=== PATIENT | female | born 1960 | race Caucasian/White ===

== ENCOUNTER 2016-10-19 09:13 | Inpatient (IN) | payer MEDICARE, MEDICAID ==
[~2016-10-19] VITALS: Ht 167.6 cm; Wt 94.8 kg
[~2016-10-19 09:13] MED LIST: DOCU-150 PO; FURO40TA5 PO; LORA1TAB PO; LORA2VIA33 IM; OXCA300T31 PO; TEMA30CA5 PO; TRAZ300T2 PO
[2016-10-19 10:44] LABS: BASOPHILS % 0.7 % (0.0-2.0); EOSINOPHILS % 1.7 % (0.0-5.0); HEMATOCRIT. 26.6 % (36.0-48.0); HEMOGLOBIN. 9.3 g/dL (12.0-16.0); LYMPHOCYTES % 17.2 % (20.0-50.0); MEAN CORPUSCULAR HEMOGLOBIN 30.9 pg (28.0-32.0); MEAN CORPUSCULAR VOLUME 87.9 fL (81.0-99.0); MEAN PLATELET VOLUME 6.8 fl (7.4-10.4); MONOCYTES % 6.2 % (2.0-8.0); NEUTROPHILS % 74.2 % (40.0-76.0); PLATELET 137 x1000/uL (130-400); RED BLOOD CELL COUNT 3.02 mill/uL (4.2-5.4); RED CELL DISTRIBUTION WIDTH 14.3 % (11.6-14.6)
[2016-10-19 10:54] LABS: AMMONIA 16 uMol/L (<32)
[2016-10-19 11:01] LABS: CARBON DIOXIDE 29 mEq/L (21-32); CHLORIDE 109 mEq/L (98-107); ETHANOL BLOOD < 10 mg/dL; TROPONIN I < 0.02 ng/mL (0.00-0.04)
[2016-10-19 13:05] LABS: CLARITY URINE CLEAR (CLEAR); COLOR URINE DARK YELLOW (YELLOW); GLUCOSE URINE NEGATIVE (NEGATIVE); KETONES URINE NEGATIVE (NEGATIVE); LEUKOCYTE ESTERASE URINE TRACE (NEGATIVE); NITRITE URINE NEGATIVE (NEGATIVE); OCCULT BLOOD URINE NEGATIVE (NEGATIVE); PROTEIN URINE NEGATIVE (NEGATIVE); SPECIFIC GRAVITY URINE 1.018 (1.005-1.030); UROBILINOGEN URINE 0.2 E.U./dL (0.2-1.0)
[2016-10-19 13:15] LABS: *AMPHETAMINES SCREEN URINE NEGATIVE (NEGATIVE); *BARBITURATES SCREEN URINE NEGATIVE (NEGATIVE); *BENZODIAZEPINES SCREEN URINE PRESUMTIVE POSITIVE (NEGATIVE); *COCAINE SCREEN URINE NEGATIVE (NEGATIVE); CANNABINOID URINE SCREEN NEGATIVE (NEGATIVE); METHADONE URINE SCREEN NEGATIVE (NEGATIVE); OPIATES URINE SCREEN PRESUMTIVE POSITIVE (NEGATIVE); PHENCYCLIDINE URINE SCREEN NEGATIVE (NEGATIVE)
[2016-10-19] MEDS ORDERED: FLUMAZENIL 0.1 MG/ML 5ML VIAL IV ONE (14:30)
[2016-10-19] MEDS ORDERED: NALOXONE HCL 1 MG/ML 2ML VIAL IV ONE (14:30)
[2016-10-19 17:00] VITALS: BP 85/40
[2016-10-19 17:29] VITALS: BP 85/40
[2016-10-19] MEDS ORDERED: OXCA300T31 PO (17:35)
[2016-10-19] MEDS ORDERED: TEMAZEPAM 15MG CAPSULE PO PRN (18:00)
[2016-10-19] MEDS ORDERED: ACETAMINOPHEN 325MG TABLET PO PRN (18:00)
[2016-10-19] MEDS ORDERED: ONDANSETRON HCL 4MG/2ML VIAL IV PRN (18:00)
[2016-10-19] MEDS ORDERED: CLONIDINE 0.2MG TABLET PO PRN (18:00)
[2016-10-19] MEDS ORDERED: IBUPROFEN 600MG TABLET PO PRN (18:00)
[2016-10-19] MEDS ORDERED: POTASSIUM CHLORIDE 20MEQ TABLET SR PO NR (18:15)
[2016-10-19] MEDS: SODIUM CHLORIDE 0.45% 1,000 ML IV SCH (18:42)
[2016-10-19 20:00] VITALS: BP 102/60
[2016-10-19] MEDS: TRAZODONE HCL 100MG TABLET PO SCH (21:00)
[2016-10-19] MEDS: OXCARBAZEPINE 150MG TABLET PO SCH (21:00)
[2016-10-19] MEDS: ENOXAPARIN 30MG/0.3ML SYR SUBCUT SCH (22:38)
[2016-10-20] VITALS: BP 108/64
[2016-10-20 04:00] VITALS: BP 99/59
[2016-10-20 05:49] LABS: BASOPHILS % 1.2 % (0.0-2.0); EOSINOPHILS % 0.9 % (0.0-5.0); HEMATOCRIT. 27.5 % (36.0-48.0); HEMOGLOBIN. 9.4 g/dL (12.0-16.0); LYMPHOCYTES % 25.8 % (20.0-50.0); MEAN CORPUSCULAR HEMOGLOBIN 30.4 pg (28.0-32.0); MEAN CORPUSCULAR VOLUME 88.9 fL (81.0-99.0); MEAN PLATELET VOLUME 6.9 fl (7.4-10.4); NEUTROPHILS % 65.1 % (40.0-76.0); PLATELET 193 x1000/uL (130-400); RED BLOOD CELL COUNT 3.09 mill/uL (4.2-5.4); RED CELL DISTRIBUTION WIDTH 14.6 % (11.6-14.6)
[2016-10-20 06:33] LABS: CARBON DIOXIDE 27 mEq/L (21-32); CHLORIDE 108 mEq/L (98-107)
[2016-10-20] MEDS ORDERED: OMEPRAZOLE 20MG CAPSULE EXTENDED RELEASE PO SCH (06:45)
[2016-10-20 08:00] VITALS: BP 95/46
[2016-10-20] MEDS ORDERED: ENOXAPARIN 40MG/0.4ML SYR SUBCUT SCH (09:00)
[2016-10-20] MEDS: SODIUM CHLORIDE 0.45% 1,000 ML IV SCH (09:44)
[2016-10-20] MEDS: LORAZEPAM 1MG TABLET PO SCH ×2 (09:46→17:48)
[2016-10-20] MEDS: FUROSEMIDE 40MG TABLET PO SCH (09:46)
[2016-10-20] MEDS: DOCUSATE SODIUM 100MG CAPSULE PO SCH (09:46)
[2016-10-20] MEDS: OXCARBAZEPINE 150MG TABLET PO SCH ×2 (09:46→21:27)
[2016-10-20] MEDS: ENOXAPARIN 30MG/0.3ML SYR SUBCUT SCH ×2 (09:47→21:27)
[2016-10-20 12:00] VITALS: BP 95/43
[2016-10-20 16:00] VITALS: BP 84/47
[2016-10-20 20:00] VITALS: BP_SYST 114; BP_SYST 93; BP_DIAS 52; BP_DIAS 67
[2016-10-20] MEDS: TRAZODONE HCL 100MG TABLET PO SCH (21:27)
[2016-10-21] VITALS: BP 102/58
[2016-10-21] MEDS: SODIUM CHLORIDE 0.45% 1,000 ML IV SCH ×2 (00:06→14:06)
[2016-10-21 04:00] VITALS: BP 99/59
[2016-10-21 08:00] VITALS: BP 95/56
[2016-10-21] MEDS: ENOXAPARIN 30MG/0.3ML SYR SUBCUT SCH ×2 (08:42→21:23)
[2016-10-21] MEDS: OXCARBAZEPINE 150MG TABLET PO SCH ×2 (08:42→21:22)
[2016-10-21] MEDS: LANSOPRAZOLE 15MG DR CAPSULE GT SCH (08:42)
[2016-10-21] MEDS: LORAZEPAM 1MG TABLET PO SCH ×2 (08:42→16:50)
[2016-10-21] MEDS: DOCUSATE SODIUM 100MG CAPSULE PO SCH (08:43)
[2016-10-21 12:00] VITALS: BP 97/59
[2016-10-21] MEDS: FUROSEMIDE 40MG TABLET PO SCH (12:13)
[2016-10-21 16:00] VITALS: BP 95/50
[2016-10-21 20:00] VITALS: BP 90/50
[2016-10-21] MEDS: TRAZODONE HCL 100MG TABLET PO SCH (21:22)
[2016-10-21] MEDS: MICONAZOLE NITRATE 2% OINT 71GM TOP SCH (21:23)
[2016-10-22] VITALS: BP 107/55
[2016-10-22] MEDS: LANSOPRAZOLE 15MG DR CAPSULE GT SCH (06:28)
[2016-10-22 08:00] VITALS: BP 107/58
[2016-10-22] MEDS: FUROSEMIDE 40MG TABLET PO SCH (10:00)
[2016-10-22] MEDS: ENOXAPARIN 30MG/0.3ML SYR SUBCUT SCH ×2 (10:00→21:40)
[2016-10-22] MEDS: LORAZEPAM 1MG TABLET PO SCH ×2 (10:00→17:52)
[2016-10-22] MEDS: OXCARBAZEPINE 150MG TABLET PO SCH ×2 (10:01→21:39)
[2016-10-22] MEDS: DOCUSATE SODIUM 100MG CAPSULE PO SCH (10:01)
[2016-10-22] MEDS: MICONAZOLE NITRATE 2% OINT 71GM TOP SCH ×2 (10:02→21:39)
[2016-10-22] MEDS: SODIUM CHLORIDE 0.45% 1,000 ML IV SCH ×2 (11:09→17:53)
[2016-10-22 12:00] VITALS: BP 110/73
[2016-10-22 16:00] VITALS: BP 103/75
[2016-10-22 20:00] VITALS: BP 129/60
[2016-10-22] MEDS: FAMOTIDINE 20MG TABLET GT SCH (21:39)
[2016-10-22] MEDS: TRAZODONE HCL 100MG TABLET PO SCH (21:39)
[2016-10-23] VITALS: BP 135/63
[2016-10-23 04:00] VITALS: BP 131/83
[2016-10-23 06:05] LABS: BASOPHILS % 0.6 % (0.0-2.0); EOSINOPHILS % 3.1 % (0.0-5.0); HEMATOCRIT. 25.4 % (36.0-48.0); HEMOGLOBIN. 8.8 g/dL (12.0-16.0); LYMPHOCYTES % 29.2 % (20.0-50.0); MEAN CORPUSCULAR HEMOGLOBIN 30.7 pg (28.0-32.0); MEAN CORPUSCULAR VOLUME 88.9 fL (81.0-99.0); MEAN PLATELET VOLUME 6.8 fl (7.4-10.4); MONOCYTES % 7.4 % (2.0-8.0); NEUTROPHILS % 59.7 % (40.0-76.0); PLATELET 171 x1000/uL (130-400); RED BLOOD CELL COUNT 2.86 mill/uL (4.2-5.4); RED CELL DISTRIBUTION WIDTH 14.4 % (11.6-14.6)
[2016-10-23 06:34] LABS: CARBON DIOXIDE 26 mEq/L (21-32); CHLORIDE 108 mEq/L (98-107)
[2016-10-23 08:30] VITALS: BP 93/50
[2016-10-23] MEDS: FAMOTIDINE 20MG TABLET GT SCH ×2 (09:14→21:30)
[2016-10-23] MEDS: LORAZEPAM 1MG TABLET PO SCH ×2 (09:14→16:28)
[2016-10-23] MEDS: FUROSEMIDE 40MG TABLET PO SCH (09:14)
[2016-10-23] MEDS: OXCARBAZEPINE 150MG TABLET PO SCH ×2 (09:14→21:30)
[2016-10-23] MEDS: ENOXAPARIN 30MG/0.3ML SYR SUBCUT SCH ×2 (09:14→21:31)
[2016-10-23] MEDS: DOCUSATE SODIUM 100MG CAPSULE PO SCH (09:14)
[2016-10-23] MEDS: MICONAZOLE NITRATE 2% OINT 71GM TOP SCH ×2 (09:14→21:31)
[2016-10-23] MEDS: LORAZEPAM 2MG/ML CPJ IM PRN (12:56)
[2016-10-23 16:00] VITALS: BP 110/70
[2016-10-23 20:00] VITALS: BP 116/74
[2016-10-23] MEDS ORDERED: POTASSIUM CHLORIDE 20MEQ TABLET SR PO NR (20:00)
[2016-10-23] MEDS: TRAZODONE HCL 100MG TABLET PO SCH (21:30)
[2016-10-24] VITALS (7 sets, daily range): BP systolic 87–166; BP diastolic 51–96
[2016-10-24] MEDS: OXCARBAZEPINE 150MG TABLET PO SCH ×2 (08:50→21:09)
[2016-10-24] MEDS: ENOXAPARIN 30MG/0.3ML SYR SUBCUT SCH ×2 (08:50→21:09)
[2016-10-24] MEDS: FUROSEMIDE 40MG TABLET PO SCH (08:50)
[2016-10-24] MEDS: MICONAZOLE NITRATE 2% OINT 71GM TOP SCH (08:50)
[2016-10-24] MEDS: LORAZEPAM 1MG TABLET PO SCH ×2 (08:50→16:48)
[2016-10-24] MEDS: DOCUSATE SODIUM 100MG CAPSULE PO SCH (08:50)
[2016-10-24] MEDS: FAMOTIDINE 20MG TABLET GT SCH ×2 (08:50→21:09)
[2016-10-24] MEDS: LORAZEPAM 2MG/ML CPJ IM PRN (20:32)
[2016-10-24] MEDS: TRAZODONE HCL 100MG TABLET PO SCH (21:09)
[2016-10-24] MEDS ORDERED: LORAZEPAM 2MG/ML CPJ IM PRN (23:00)
[2016-10-25] VITALS: BP 92/49
[2016-10-25] MEDS: MICONAZOLE NITRATE 2% OINT 71GM TOP SCH ×2 (02:31→08:58)
[2016-10-25 04:00] VITALS: BP 99/66
[2016-10-25 05:54] VITALS: BP 103/70
[2016-10-25 08:00] VITALS: BP 103/70
[2016-10-25] MEDS ORDERED: POTASSIUM CHLORIDE 20MEQ TABLET SR PO NR (08:45)
[2016-10-25] MEDS: DOCUSATE SODIUM 100MG CAPSULE PO SCH (08:57)
[2016-10-25] MEDS: FAMOTIDINE 20MG TABLET GT SCH (08:57)
[2016-10-25] MEDS: LORAZEPAM 1MG TABLET PO SCH (08:57)
[2016-10-25] MEDS: OXCARBAZEPINE 150MG TABLET PO SCH (08:57)
[2016-10-25] MEDS: FUROSEMIDE 40MG TABLET PO SCH (08:57)
[2016-10-25] MEDS: ENOXAPARIN 30MG/0.3ML SYR SUBCUT SCH (08:58)
[2016-10-25 12:00] VITALS: BP 104/58
[2016-10-25 16:00] VITALS: BP 103/74
== END 2016-10-25 16:55 | DRG 91 ==
LOC: ER 09:32 → OBSVTOIN 15:03 → INTOOBSV 15:03 → 5WST 15:03 → EDBEDREQ 15:04 → ENRESERV 15:27 → CANBEDREQ 16:23
PROVIDERS: ADMIT Internal Medicine; ATTEND Internal Medicine
DX: G92 Toxic encephalopathy (principal); E43 Unspecified severe protein-calorie malnutrition; I11.9 Hypertensive heart disease without heart failure; E87.6 Hypokalemia; E86.0 Dehydration; E66.9 Obesity, unspecified; E78.5 Hyperlipidemia, unspecified; F79 Unspecified intellectual disabilities; J44.9 Chronic obstructive pulmonary disease, unspecified; F19.10 Other psychoactive substance abuse, uncomplicated; F03.90 Unspecified dementia, unspecified severity, without behavioral disturbance, psychotic disturbance, mood disturbance, and anxiety; T42.4X5A Adverse effect of benzodiazepines, initial encounter; Z79.899 Other long term (current) drug therapy; Z68.33 Body mass index [BMI] 33.0-33.9, adult; Y92.89 Other specified places as the place of occurrence of the external cause; Z87.01 Personal history of pneumonia (recurrent); Z87.440 Personal history of urinary (tract) infections
CPT/HCPCS: 36415; 51702; 70450; 71010; 80048; 80053; 80305; 81001; 82140; 82962; 83605; 84484; 85025; 93005; 96374; 96375; 97163; 97530; 99285; A6261; C1893; G0482; J1650; J2060; J2310; J3490; J7060; A4315

== ENCOUNTER 2018-05-21 16:31 | Inpatient (IN) | payer MEDICARE, MEDICAID ==
[~2018-05-21] VITALS: Ht 162.6 cm; Wt 80.3 kg
[~2018-05-21 16:31] MED LIST changes: -LORA2VIA33 IM
[2018-05-21] MEDS ORDERED: ACETAMINOPHEN 650MG SUPP PR STA (16:59)
[2018-05-21] MEDS ORDERED: SODIUM CHLORIDE 0.9% 1000ML BAG (SEPSIS BOLUS) IV ONE (17:00)
[2018-05-21 17:55] LABS: CHLORIDE 99 mEq/L (98-107)
[2018-05-21 17:56] LABS: HEMATOCRIT. 44.6 % (36.0-48.0); HEMOGLOBIN. 14.4 g/dL (12.0-16.0); MEAN CORPUSCULAR VOLUME 93.1 fL (81.0-99.0); PLATELET 311 x1000/uL (130-400); RED BLOOD CELL COUNT 4.79 mill/uL (4.2-5.4); RED CELL DISTRIBUTION WIDTH 18.9 % (11.6-14.6)
[2018-05-21 17:57] LABS: INR 1.2; PROTHROMBIN TIME 12.1 sec (9.1-11.1)
[2018-05-21 18:18] LABS: CLARITY URINE CLOUDY (CLEAR); COLOR URINE DARK YELLOW (YELLOW); KETONES URINE TRACE (NEGATIVE); LEUKOCYTE ESTERASE URINE 2+ (NEGATIVE); NITRITE URINE NEGATIVE (NEGATIVE); OCCULT BLOOD URINE 1+ (NEGATIVE); PROTEIN URINE 1+ (NEGATIVE); SPECIFIC GRAVITY URINE 1.024 (1.005-1.030); UROBILINOGEN URINE 0.2 E.U./dL (0.2-1.0)
[2018-05-21 18:20] LABS: BG BASE EXCESS -6.5 mmol/L (-2.0-2.0); BG CARBOXYHEMOGLOBIN 1.1 % (0.5-1.5); BG DEOXYHEMOGLOBIN 10.4 % (0.0-5.0); BG FRACTION INSPIRED OXYGEN 100; BG HCO3 ACT 20.1 mmol/L (22.0-26.0); BG METHEMOGLOBIN 0.3 % (0.0-1.5); BG OXYGEN SATURATION 89.5 % (92.0-98.5); BG OXYHEMOGLOBIN 88.2 % (94.0-97.0); BG PCO2 43.9 mmHg (35.0-45.0); BG PH 7.278 (7.350-7.450); BG PO2 66.8 mmHg (75.0-100.0); BG SAMPLE SITE RIGHT RADIAL; BG VENT MODE MASK - NRB
[2018-05-21 18:26] LABS: PLATELET ESTIMATE NORMAL
[2018-05-21] MEDS ORDERED: VANCOMYCIN 1 G PREMIX 200 ML IV ONE (19:00)
[2018-05-21] MEDS ORDERED: PIPERACILLIN/TAZ 3.375G PREMIX 50 ML IV ONE (19:00)
[2018-05-21] MEDS ORDERED: PIPERACILLIN/TAZ 3.375G PREMIX 50 ML IV SCH (19:15)
[2018-05-21] MEDS ORDERED: IPRATROPIUM/ALBUTEROL 0.5-3(2.5)MG/3ML NEB INH PRN (19:15)
[2018-05-21] MEDS ORDERED: CLONIDINE 0.1MG TABLET PO PRN (19:15)
[2018-05-21] MEDS ORDERED: LORAZEPAM 2MG/ML CPJ IV ONE (21:15)
[2018-05-21 22:00] VITALS: BP 158/118
[2018-05-21 22:05] VITALS: BP 158/118
[2018-05-21] MEDS: DEXT 5%/0.45% NACL 1000ML 1,000 ML IV SCH (23:22)
[2018-05-22] VITALS (12 sets, daily range): BP systolic 91–114; BP diastolic 51–83
[2018-05-22] MEDS ORDERED: VANCOMYCIN 1 G PREMIX 200 ML IV SCH (04:00)
[2018-05-22] MEDS ORDERED: PIPERACILLIN/TAZ 3.375G PREMIX 50 ML IV SCH (05:00)
[2018-05-22 06:31] LABS: BASOPHILS % 0.3 % (0.0-2.0); EOSINOPHILS % 0.2 % (0.0-5.0); HEMATOCRIT. 31.1 % (36.0-48.0); HEMOGLOBIN. 10.7 g/dL (12.0-16.0); LYMPHOCYTES % 23.1 % (20.0-50.0); MEAN CORPUSCULAR HEMOGLOBIN 31.1 pg (28.0-32.0); MEAN CORPUSCULAR VOLUME 90.4 fL (81.0-99.0); MEAN PLATELET VOLUME 7.3 fl (7.4-10.4); MONOCYTES % 5.9 % (2.0-8.0); NEUTROPHILS % 70.5 % (40.0-76.0); PLATELET 151 x1000/uL (130-400); RED BLOOD CELL COUNT 3.44 mill/uL (4.2-5.4); RED CELL DISTRIBUTION WIDTH 18.4 % (11.6-14.6)
[2018-05-22 06:38] LABS: CHLORIDE 108 mEq/L (98-107)
[2018-05-22 06:48] LABS: LDL CHOLESTEROL 36 mg/dL (5-100)
[2018-05-22 06:49] LABS: HDL CHOLESTEROL 43 mg/dL (40-59)
[2018-05-22] MEDS ORDERED: NA PHOS,M-B/NA PHOS,DI-BA ENEMA 118ML PR ONE (07:45)
[2018-05-22] MEDS ORDERED: DEXTROSE 50% WATER 50ML SYRINGE IV PRN (08:00)
[2018-05-22] MEDS ORDERED: INSULIN LISPRO 100 UNITS/ML SUBCUT SCH (08:00)
[2018-05-22] MEDS: ENOXAPARIN 40MG/0.4ML SYR SUBCUT SCH (08:38)
[2018-05-22 09:50] LABS: VITAMIN B12 SERUM 871 pg/mL (211-911)
[2018-05-22 10:10] LABS: ETHANOL BLOOD < 10 mg/dL
[2018-05-22 10:14] LABS: T4 FREE 1.05 ng/dL (0.76-1.46)
[2018-05-22 10:18] LABS: TOTAL IRON BINDING CAPACITY 316 ug/dL (250-450)
[2018-05-22 10:27] LABS: FOLIC ACID (FOLATE) SERUM > 20.00 ng/mL (>5.38)
[2018-05-22] MEDS ORDERED: SORBITOL 70% SOLN 30ML PO NR (10:45)
[2018-05-22] MEDS ORDERED: BISACODYL 10MG SUPP PR PRN (10:45)
[2018-05-22 10:49] LABS: BG BASE EXCESS 4.7 mmol/L (-2.0-2.0); BG CARBOXYHEMOGLOBIN 0.3 % (0.5-1.5); BG DEOXYHEMOGLOBIN 3.9 % (0.0-5.0); BG FRACTION INSPIRED OXYGEN 32; BG HCO3 ACT 29.1 mmol/L (22.0-26.0); BG METHEMOGLOBIN 0.2 % (0.0-1.5); BG OXYGEN SATURATION 96.1 % (92.0-98.5); BG OXYHEMOGLOBIN 95.6 % (94.0-97.0); BG PCO2 42.9 mmHg (35.0-45.0); BG PO2 88.1 mmHg (75.0-100.0); BG SAMPLE SITE RIGHT RADIAL; BG TOTAL HEMOGLOBIN 10.1 g/dL (12.0-18.0); BG VENT MODE NASAL CANNULA
[2018-05-22] MEDS: MIDODRINE HCL 5MG TABLET PO SCH ×3 (11:08→17:30)
[2018-05-22] MEDS: DEXT 5%/0.45% NACL 1000ML 1,000 ML IV SCH ×2 (11:42→22:26)
[2018-05-22] MEDS: BLOOD SUGAR DIAGNOSTIC STRIP TEST SCH ×3 (11:56→23:50)
[2018-05-22] MEDS: INSULIN LISPRO 100 UNITS/ML SUBCUT SCH ×2 (11:56→18:00)
[2018-05-22] MEDS: PIPERACILLIN/TAZ 3.375G PREMIX 50 ML IV SCH ×3 (12:13→22:34)
[2018-05-22] MEDS ORDERED: BLOOD SUGAR DIAGNOSTIC STRIP TEST SCH (12:30)
[2018-05-22 13:56] LABS: *AMPHETAMINES SCREEN URINE NEGATIVE (NEGATIVE); *BARBITURATES SCREEN URINE NEGATIVE (NEGATIVE); *BENZODIAZEPINES SCREEN URINE NEGATIVE (NEGATIVE); *COCAINE SCREEN URINE NEGATIVE (NEGATIVE)
[2018-05-22 13:57] LABS: CANNABINOID URINE SCREEN NEGATIVE (NEGATIVE); METHADONE URINE SCREEN NEGATIVE (NEGATIVE); OPIATES URINE SCREEN NEGATIVE (NEGATIVE); PHENCYCLIDINE URINE SCREEN NEGATIVE (NEGATIVE)
[2018-05-22] MEDS: IPRATROPIUM/ALBUTEROL 0.5-3(2.5)MG/3ML NEB HHN SCH ×2 (16:16→20:32)
[2018-05-22] MEDS: VANCOMYCIN 1 G PREMIX 200 ML IV SCH (18:17)
[2018-05-22] MEDS: ONDANSETRON HCL 4MG/2ML INJ IV PRN (22:30)
[2018-05-22] MEDS: HYDROMORPHONE HCL/PF 2MG/ML CPJ IV PRN (22:54)
[2018-05-23] VITALS (12 sets, daily range): BP systolic 84–131; BP diastolic 46–94
[2018-05-23] MEDS: IPRATROPIUM/ALBUTEROL 0.5-3(2.5)MG/3ML NEB HHN SCH ×6 (00:34→21:46)
[2018-05-23] MEDS: PIPERACILLIN/TAZ 3.375G PREMIX 50 ML IV SCH ×2 (04:47→12:05)
[2018-05-23] MEDS: VANCOMYCIN 1 G PREMIX 200 ML IV SCH (05:48)
[2018-05-23] MEDS: BLOOD SUGAR DIAGNOSTIC STRIP TEST SCH ×3 (05:49→17:31)
[2018-05-23] MEDS: INSULIN LISPRO 100 UNITS/ML SUBCUT SCH ×4 (06:00→17:31)
[2018-05-23 06:15] LABS: BASOPHILS % 0.4 % (0.0-2.0); EOSINOPHILS % 0.9 % (0.0-5.0); HEMATOCRIT. 30.1 % (36.0-48.0); HEMOGLOBIN. 10.3 g/dL (12.0-16.0); LYMPHOCYTES % 18.7 % (20.0-50.0); MEAN PLATELET VOLUME 7.4 fl (7.4-10.4); MONOCYTES % 7.2 % (2.0-8.0); NEUTROPHILS % 72.8 % (40.0-76.0); PLATELET 137 x1000/uL (130-400); RED BLOOD CELL COUNT 3.31 mill/uL (4.2-5.4); RED CELL DISTRIBUTION WIDTH 18.3 % (11.6-14.6)
[2018-05-23 06:23] LABS: CHLORIDE 107 mEq/L (98-107)
[2018-05-23 06:39] LABS: VANCOMYCIN TROUGH 7.5 ug/mL (5.0-10.0)
[2018-05-23] MEDS: MIDODRINE HCL 5MG TABLET PO SCH ×3 (08:16→16:34)
[2018-05-23] MEDS: PANTOPRAZOLE SODIUM 40 MG/VIAL IV SCH (08:17)
[2018-05-23] MEDS: ENOXAPARIN 40MG/0.4ML SYR SUBCUT SCH (08:17)
[2018-05-23 08:45] LABS: BG BASE EXCESS 3.4 mmol/L (-2.0-2.0); BG CARBOXYHEMOGLOBIN 0.3 % (0.5-1.5); BG DEOXYHEMOGLOBIN 5.8 % (0.0-5.0); BG FRACTION INSPIRED OXYGEN 21; BG HCO3 ACT 27.8 mmol/L (22.0-26.0); BG METHEMOGLOBIN 0.3 % (0.0-1.5); BG OXYGEN SATURATION 94.2 % (92.0-98.5); BG OXYHEMOGLOBIN 93.6 % (94.0-97.0); BG PCO2 41.8 mmHg (35.0-45.0); BG PH 7.441 (7.350-7.450); BG PO2 71.6 mmHg (75.0-100.0); BG SAMPLE SITE RIGHT BRACHIAL; BG TOTAL HEMOGLOBIN 9.4 g/dL (12.0-18.0); BG VENT MODE ROOM AIR
[2018-05-23] MEDS ORDERED: POTASSIUM CHLORIDE INJ 60 MEQ in DEXT 5% WATER 500 ML IV NR (09:00)
[2018-05-23] MEDS ORDERED: VANCOMYCIN 1250MG in DEXTROSE 5% WATER 250ML IV SCH (14:00)
[2018-05-23] MEDS: LACTULOSE 20G/30ML UDC PO SCH ×2 (14:09→21:19)
[2018-05-23] MEDS: ACETAMINOPHEN 325MG TABLET PO PRN (16:34)
[2018-05-23] MEDS: DEXT 5%/0.45% NACL 1000ML 1,000 ML IV SCH (18:30)
[2018-05-23] MEDS: MEROPENEM 1,000 MG in SODIUM CHLORIDE 0.9% 100 ML IV SCH (21:20)
[2018-05-23] MEDS: ONDANSETRON HCL 4MG/2ML INJ IV PRN (21:20)
[2018-05-24] VITALS (11 sets, daily range): BP systolic 112–157; BP diastolic 62–91
[2018-05-24] MEDS: ACETAMINOPHEN 325MG TABLET PO PRN (01:20)
[2018-05-24] MEDS: ONDANSETRON HCL 4MG/2ML INJ IV PRN (03:44)
[2018-05-24] MEDS: DEXT 5%/0.45% NACL 1000ML 1,000 ML IV SCH (03:48)
[2018-05-24] MEDS: IPRATROPIUM/ALBUTEROL 0.5-3(2.5)MG/3ML NEB HHN SCH ×4 (04:15→20:31)
[2018-05-24] MEDS: INSULIN LISPRO 100 UNITS/ML SUBCUT SCH ×4 (06:00→17:48)
[2018-05-24] MEDS: BLOOD SUGAR DIAGNOSTIC STRIP TEST SCH ×4 (06:43→17:48)
[2018-05-24] MEDS: LACTULOSE 20G/30ML UDC PO SCH ×3 (06:43→22:29)
[2018-05-24] MEDS: MEROPENEM 1,000 MG in SODIUM CHLORIDE 0.9% 100 ML IV SCH ×3 (06:43→22:30)
[2018-05-24 07:09] LABS: CHLORIDE 106 mEq/L (98-107)
[2018-05-24 07:10] LABS: BASOPHILS % 0.6 % (0.0-2.0); EOSINOPHILS % 1.1 % (0.0-5.0); HEMATOCRIT. 29.9 % (36.0-48.0); HEMOGLOBIN. 10.4 g/dL (12.0-16.0); LYMPHOCYTES % 16.5 % (20.0-50.0); MEAN CORPUSCULAR HEMOGLOBIN 31.2 pg (28.0-32.0); MEAN CORPUSCULAR VOLUME 89.3 fL (81.0-99.0); MEAN PLATELET VOLUME 7.3 fl (7.4-10.4); MONOCYTES % 5.8 % (2.0-8.0); PLATELET 169 x1000/uL (130-400); RED BLOOD CELL COUNT 3.35 mill/uL (4.2-5.4); RED CELL DISTRIBUTION WIDTH 17.9 % (11.6-14.6)
[2018-05-24 07:18] LABS: PHOSPHORUS 2.7 mg/dL (2.5-4.9)
[2018-05-24] MEDS ORDERED: LIDOCAINE HCL 1% 20ML VIAL (Pyxis) INJ ONE (08:12)
[2018-05-24] MEDS: ENOXAPARIN 40MG/0.4ML SYR SUBCUT SCH (09:52)
[2018-05-24] MEDS: MIDODRINE HCL 5MG TABLET PO SCH ×3 (09:52→16:56)
[2018-05-24] MEDS: PANTOPRAZOLE SODIUM 40 MG/VIAL IV SCH (09:52)
[2018-05-24] MEDS ORDERED: POTASSIUM CHLORIDE 20MEQ/PACKET NG NR (10:30)
[2018-05-24] MEDS: LORAZEPAM 2MG/ML CPJ IV PRN (22:29)
[2018-05-25] VITALS (12 sets, daily range): BP systolic 103–150; BP diastolic 64–96
[2018-05-25] MEDS: IPRATROPIUM/ALBUTEROL 0.5-3(2.5)MG/3ML NEB HHN SCH ×5 (00:23→20:26)
[2018-05-25] MEDS: DEXT 5%/0.45% NACL 1000ML 1,000 ML IV SCH (04:19)
[2018-05-25] MEDS: MEROPENEM 1,000 MG in SODIUM CHLORIDE 0.9% 100 ML IV SCH ×3 (05:46→14:49)
[2018-05-25] MEDS: LACTULOSE 20G/30ML UDC PO SCH ×2 (05:47→17:28)
[2018-05-25] MEDS: BLOOD SUGAR DIAGNOSTIC STRIP TEST SCH ×4 (05:58→17:34)
[2018-05-25] MEDS: INSULIN LISPRO 100 UNITS/ML SUBCUT SCH ×4 (05:58→17:34)
[2018-05-25] MEDS: PANTOPRAZOLE SODIUM 40 MG/VIAL IV SCH (10:09)
[2018-05-25] MEDS: LORAZEPAM 2MG/ML CPJ IV PRN (10:10)
[2018-05-25] MEDS: MIDODRINE HCL 5MG TABLET PO SCH ×3 (10:10→17:27)
[2018-05-25] MEDS: ENOXAPARIN 40MG/0.4ML SYR SUBCUT SCH (10:11)
[2018-05-25 11:25] LABS: BASOPHILS % 0.5 % (0.0-2.0); EOSINOPHILS % 1.3 % (0.0-5.0); HEMATOCRIT. 29.8 % (36.0-48.0); HEMOGLOBIN. 9.9 g/dL (12.0-16.0); LYMPHOCYTES % 28.9 % (20.0-50.0); MEAN CORPUSCULAR HEMOGLOBIN 29.9 pg (28.0-32.0); MEAN CORPUSCULAR VOLUME 89.9 fL (81.0-99.0); MONOCYTES % 9.7 % (2.0-8.0); NEUTROPHILS % 59.6 % (40.0-76.0); PLATELET 159 x1000/uL (130-400); RED BLOOD CELL COUNT 3.31 mill/uL (4.2-5.4); RED CELL DISTRIBUTION WIDTH 17.8 % (11.6-14.6)
[2018-05-25 11:37] LABS: CHLORIDE 108 mEq/L (98-107)
[2018-05-25] MEDS: LEVETIRACETAM 500 MG in SODIUM CHLORIDE 0.9% 100 ML IV SCH ×2 (12:58→21:39)
[2018-05-25] MEDS ORDERED: POTASSIUM CHLORIDE 20MEQ/PACKET PO NR (13:00)
[2018-05-25 13:28] LABS: BG BASE EXCESS 2.8 mmol/L (-2.0-2.0); BG CARBOXYHEMOGLOBIN 0.5 % (0.5-1.5); BG DEOXYHEMOGLOBIN 7.5 % (0.0-5.0); BG FRACTION INSPIRED OXYGEN 21; BG HCO3 ACT 26.5 mmol/L (22.0-26.0); BG METHEMOGLOBIN 0.1 % (0.0-1.5); BG OXYGEN SATURATION 92.5 % (92.0-98.5); BG OXYHEMOGLOBIN 91.9 % (94.0-97.0); BG PCO2 37.3 mmHg (35.0-45.0); BG PO2 66.6 mmHg (75.0-100.0); BG SAMPLE SITE RIGHT RADIAL; BG TOTAL HEMOGLOBIN 10.8 g/dL (12.0-18.0); BG VENT MODE ROOM AIR
[2018-05-25] MEDS: MORPHINE SULFATE 4 MG/ML CPJ (NOT FOR IM USE) IV PRN (21:39)
[2018-05-26] VITALS (12 sets, daily range): BP systolic 108–146; BP diastolic 59–113
[2018-05-26] MEDS: IPRATROPIUM/ALBUTEROL 0.5-3(2.5)MG/3ML NEB HHN SCH ×6 (00:05→20:36)
[2018-05-26] MEDS: DEXT 5%/0.45% NACL 1000ML 1,000 ML IV SCH ×2 (01:19→19:30)
[2018-05-26] MEDS: INSULIN LISPRO 100 UNITS/ML SUBCUT SCH ×4 (06:00→18:00)
[2018-05-26] MEDS: BLOOD SUGAR DIAGNOSTIC STRIP TEST SCH ×4 (06:00→18:00)
[2018-05-26 06:12] LABS: BASOPHILS % 0.8 % (0.0-2.0); EOSINOPHILS % 5.1 % (0.0-5.0); HEMATOCRIT. 29.5 % (36.0-48.0); HEMOGLOBIN. 10.2 g/dL (12.0-16.0); LYMPHOCYTES % 35.6 % (20.0-50.0); MEAN CORPUSCULAR HEMOGLOBIN 30.8 pg (28.0-32.0); MEAN CORPUSCULAR VOLUME 89.3 fL (81.0-99.0); MONOCYTES % 5.7 % (2.0-8.0); NEUTROPHILS % 52.8 % (40.0-76.0); RED BLOOD CELL COUNT 3.31 mill/uL (4.2-5.4); RED CELL DISTRIBUTION WIDTH 17.7 % (11.6-14.6)
[2018-05-26] MEDS: MEROPENEM 1,000 MG in SODIUM CHLORIDE 0.9% 100 ML IV SCH ×3 (06:14→21:49)
[2018-05-26 07:32] LABS: CHLORIDE 106 mEq/L (98-107)
[2018-05-26] MEDS: LEVETIRACETAM 500 MG in SODIUM CHLORIDE 0.9% 100 ML IV SCH ×2 (09:36→20:58)
[2018-05-26] MEDS: ENOXAPARIN 40MG/0.4ML SYR SUBCUT SCH (09:37)
[2018-05-26] MEDS: LACTULOSE 20G/30ML UDC PO SCH ×2 (09:38→16:44)
[2018-05-26] MEDS: PANTOPRAZOLE SODIUM 40 MG/VIAL IV SCH (09:38)
[2018-05-26] MEDS: ACETAMINOPHEN 325MG TABLET PO PRN ×2 (09:39→16:46)
[2018-05-26] MEDS: MIDODRINE HCL 5MG TABLET PO SCH ×3 (09:40→16:45)
[2018-05-26 09:54] LABS: MEAN PLATELET VOLUME 7.7 fl (7.4-10.4); PLATELET 177 x1000/uL (130-400)
[2018-05-26] MEDS ORDERED: SORBITOL 70% SOLN 30ML PO NR (10:00)
[2018-05-26] MEDS: BISACODYL 10MG SUPP PR SCH ×2 (12:49→16:45)
[2018-05-26] MEDS: ONDANSETRON HCL 4MG/2ML INJ IV PRN (12:49)
[2018-05-26] MEDS: HYDROMORPHONE HCL/PF 2MG/ML CPJ IV PRN (13:28)
[2018-05-26] MEDS: MORPHINE SULFATE 4 MG/ML CPJ (NOT FOR IM USE) IV PRN (20:11)
[2018-05-27] VITALS (10 sets, daily range): BP systolic 110–143; BP diastolic 63–118
[2018-05-27] MEDS: IPRATROPIUM/ALBUTEROL 0.5-3(2.5)MG/3ML NEB HHN SCH ×7 (00:19→23:50)
[2018-05-27] MEDS: MEROPENEM 1,000 MG in SODIUM CHLORIDE 0.9% 100 ML IV SCH ×3 (05:17→22:48)
[2018-05-27 05:33] LABS: CHLORIDE 106 mEq/L (98-107)
[2018-05-27] MEDS: INSULIN LISPRO 100 UNITS/ML SUBCUT SCH ×4 (06:00→18:00)
[2018-05-27] MEDS: BLOOD SUGAR DIAGNOSTIC STRIP TEST SCH ×4 (06:00→18:00)
[2018-05-27] MEDS: MIDODRINE HCL 5MG TABLET PO SCH ×3 (09:00→18:46)
[2018-05-27] MEDS: DOCUSATE SODIUM 100MG CAPSULE PO PRN (10:44)
[2018-05-27] MEDS: ACETAMINOPHEN 325MG TABLET PO PRN (10:44)
[2018-05-27] MEDS: LEVETIRACETAM 500 MG in SODIUM CHLORIDE 0.9% 100 ML IV SCH ×2 (10:44→21:12)
[2018-05-27] MEDS: PANTOPRAZOLE SODIUM 40 MG/VIAL IV SCH (10:44)
[2018-05-27] MEDS: LACTULOSE 20G/30ML UDC PO SCH ×2 (10:45→18:46)
[2018-05-27] MEDS: ENOXAPARIN 40MG/0.4ML SYR SUBCUT SCH (10:46)
[2018-05-27 13:10] LABS: BASOPHILS % 0.5 % (0.0-2.0); EOSINOPHILS % 3.7 % (0.0-5.0); HEMATOCRIT. 28.6 % (36.0-48.0); HEMOGLOBIN. 9.7 g/dL (12.0-16.0); LYMPHOCYTES % 28.7 % (20.0-50.0); MEAN CORPUSCULAR HEMOGLOBIN 30.5 pg (28.0-32.0); MEAN CORPUSCULAR VOLUME 90.2 fL (81.0-99.0); MEAN PLATELET VOLUME 7.2 fl (7.4-10.4); MONOCYTES % 8.2 % (2.0-8.0); NEUTROPHILS % 58.9 % (40.0-76.0); PLATELET 177 x1000/uL (130-400); RED BLOOD CELL COUNT 3.16 mill/uL (4.2-5.4)
[2018-05-27] MEDS: NYSTATIN POWDER 15GM TOP SCH ×2 (15:00→21:17)
[2018-05-28] VITALS (8 sets, daily range): BP systolic 100–128; BP diastolic 60–93
[2018-05-28] MEDS: IPRATROPIUM/ALBUTEROL 0.5-3(2.5)MG/3ML NEB HHN SCH ×5 (04:01→21:41)
[2018-05-28] MEDS: MEROPENEM 1,000 MG in SODIUM CHLORIDE 0.9% 100 ML IV SCH ×3 (05:17→21:55)
[2018-05-28 06:31] LABS: BASOPHILS % 0.5 % (0.0-2.0); EOSINOPHILS % 2.3 % (0.0-5.0); HEMATOCRIT. 27.2 % (36.0-48.0); HEMOGLOBIN. 9.2 g/dL (12.0-16.0); LYMPHOCYTES % 25.7 % (20.0-50.0); MEAN CORPUSCULAR HEMOGLOBIN 30.4 pg (28.0-32.0); MEAN CORPUSCULAR VOLUME 89.9 fL (81.0-99.0); MEAN PLATELET VOLUME 7.1 fl (7.4-10.4); MONOCYTES % 6.3 % (2.0-8.0); NEUTROPHILS % 65.2 % (40.0-76.0); PLATELET 163 x1000/uL (130-400); RED BLOOD CELL COUNT 3.03 mill/uL (4.2-5.4); RED CELL DISTRIBUTION WIDTH 18.1 % (11.6-14.6)
[2018-05-28 06:45] LABS: CHLORIDE 107 mEq/L (98-107)
[2018-05-28] MEDS: LACTULOSE 20G/30ML UDC PO SCH ×2 (09:46→19:01)
[2018-05-28] MEDS: PANTOPRAZOLE SODIUM 40 MG/VIAL IV SCH (09:46)
[2018-05-28] MEDS: DOCUSATE SODIUM 100MG CAPSULE PO PRN ×2 (09:46→19:01)
[2018-05-28] MEDS: LEVETIRACETAM 500 MG in SODIUM CHLORIDE 0.9% 100 ML IV SCH ×2 (09:47→21:01)
[2018-05-28] MEDS: MIDODRINE HCL 5MG TABLET PO SCH ×3 (09:47→19:02)
[2018-05-28] MEDS: MORPHINE SULFATE 4 MG/ML CPJ (NOT FOR IM USE) IV PRN (09:48)
[2018-05-28] MEDS: ENOXAPARIN 40MG/0.4ML SYR SUBCUT SCH (09:48)
[2018-05-28] MEDS: BLOOD SUGAR DIAGNOSTIC STRIP TEST SCH ×3 (12:00→23:46)
[2018-05-28] MEDS: FERROUS SULFATE 300MG/5ML UDC PO SCH ×2 (15:22→19:01)
[2018-05-28] MEDS: NYSTATIN POWDER 15GM TOP SCH ×3 (15:23→22:03)
[2018-05-28] MEDS: INSULIN LISPRO 100 UNITS/ML SUBCUT SCH ×2 (18:00→23:46)
[2018-05-29] VITALS (12 sets, daily range): BP systolic 99–128; BP diastolic 52–82
[2018-05-29] MEDS: IPRATROPIUM/ALBUTEROL 0.5-3(2.5)MG/3ML NEB HHN SCH ×6 (00:02→21:31)
[2018-05-29] MEDS: MEROPENEM 1,000 MG in SODIUM CHLORIDE 0.9% 100 ML IV SCH ×3 (05:13→22:48)
[2018-05-29] MEDS: INSULIN LISPRO 100 UNITS/ML SUBCUT SCH ×3 (05:13→17:21)
[2018-05-29] MEDS: BLOOD SUGAR DIAGNOSTIC STRIP TEST SCH ×3 (05:14→17:21)
[2018-05-29] MEDS: NYSTATIN POWDER 15GM TOP SCH ×3 (05:14→22:48)
[2018-05-29 06:52] LABS: BASOPHILS % 0.7 % (0.0-2.0); HEMATOCRIT. 26.4 % (36.0-48.0); HEMOGLOBIN. 8.7 g/dL (12.0-16.0); LYMPHOCYTES % 22.6 % (20.0-50.0); MEAN CORPUSCULAR HEMOGLOBIN 29.7 pg (28.0-32.0); MEAN CORPUSCULAR VOLUME 89.7 fL (81.0-99.0); MEAN PLATELET VOLUME 7.4 fl (7.4-10.4); MONOCYTES % 4.7 % (2.0-8.0); PLATELET 192 x1000/uL (130-400); RED BLOOD CELL COUNT 2.95 mill/uL (4.2-5.4); RED CELL DISTRIBUTION WIDTH 18.1 % (11.6-14.6)
[2018-05-29 06:55] LABS: CHLORIDE 106 mEq/L (98-107)
[2018-05-29 07:14] LABS: PHOSPHORUS 3.1 mg/dL (2.5-4.9)
[2018-05-29] MEDS: PANTOPRAZOLE SODIUM 40 MG/VIAL IV SCH (09:14)
[2018-05-29] MEDS: MIDODRINE HCL 5MG TABLET PO SCH ×3 (09:14→17:30)
[2018-05-29] MEDS: FERROUS SULFATE 300MG/5ML UDC PO SCH ×3 (09:14→17:30)
[2018-05-29] MEDS: LACTULOSE 20G/30ML UDC PO SCH (09:14)
[2018-05-29] MEDS: ENOXAPARIN 40MG/0.4ML SYR SUBCUT SCH (09:14)
[2018-05-29] MEDS: LEVETIRACETAM 500 MG in SODIUM CHLORIDE 0.9% 100 ML IV SCH ×2 (09:28→21:43)
[2018-05-30] VITALS (11 sets, daily range): BP systolic 87–150; BP diastolic 46–78
[2018-05-30] MEDS: IPRATROPIUM/ALBUTEROL 0.5-3(2.5)MG/3ML NEB HHN SCH ×5 (01:09→16:17)
[2018-05-30] MEDS: MEROPENEM 1,000 MG in SODIUM CHLORIDE 0.9% 100 ML IV SCH ×2 (05:43→13:37)
[2018-05-30] MEDS: NYSTATIN POWDER 15GM TOP SCH ×2 (05:44→13:37)
[2018-05-30] MEDS: INSULIN LISPRO 100 UNITS/ML SUBCUT SCH ×4 (05:44→17:53)
[2018-05-30] MEDS: BLOOD SUGAR DIAGNOSTIC STRIP TEST SCH ×4 (05:44→17:53)
[2018-05-30 06:55] LABS: EOSINOPHILS % 1.6 % (0.0-5.0); HEMOGLOBIN. 8.8 g/dL (12.0-16.0); LYMPHOCYTES % 20.1 % (20.0-50.0); MEAN CORPUSCULAR HEMOGLOBIN 30.2 pg (28.0-32.0); MEAN PLATELET VOLUME 7.3 fl (7.4-10.4); MONOCYTES % 4.8 % (2.0-8.0); NEUTROPHILS % 72.5 % (40.0-76.0); PLATELET 194 x1000/uL (130-400); RED BLOOD CELL COUNT 2.92 mill/uL (4.2-5.4); RED CELL DISTRIBUTION WIDTH 17.9 % (11.6-14.6)
[2018-05-30 07:26] LABS: CHLORIDE 106 mEq/L (98-107)
[2018-05-30 07:58] LABS: PHOSPHORUS 3.4 mg/dL (2.5-4.9)
[2018-05-30] MEDS: FERROUS SULFATE 300MG/5ML UDC PO SCH ×3 (08:42→17:53)
[2018-05-30] MEDS: ENOXAPARIN 40MG/0.4ML SYR SUBCUT SCH (08:42)
[2018-05-30] MEDS: MIDODRINE HCL 5MG TABLET PO SCH ×3 (08:42→16:44)
[2018-05-30] MEDS: PANTOPRAZOLE SODIUM 40 MG/VIAL IV SCH (08:42)
[2018-05-30] MEDS ORDERED: LACTULOSE 20G/30ML UDC PO SCH (09:00)
[2018-05-30] MEDS ORDERED: LEVETIRACETAM 500MG/5ML CUP GT SCH (09:00)
[2018-05-30] MEDS ORDERED: RISPERIDONE 0.5MG TABLET PO SCH (16:10)
[2018-05-31] MEDS ORDERED: CEFTRIAXONE 1 G PREMIX 50 ML IV SCH (09:00)
== END 2018-05-30 21:45 | DRG 871 ==
LOC: ER 16:31 → 5EST 20:12 → ENRESERV 20:23 → 5EST 05-23 07:22
PROVIDERS: ADMIT Internal Medicine Nephrology; ATTEND Internal Medicine Nephrology
PROC: 05H533Z Insertion of Infusion Device into Right Subclavian Vein, Percutaneous Approach (ICD-10-PCS; principal; 2018-05-24)
PROC: B5161ZA Fluoroscopy of Right Subclavian Vein using Low Osmolar Contrast, Guidance (ICD-10-PCS; 2018-05-24)
PROC: B546ZZA Ultrasonography of Right Subclavian Vein, Guidance (ICD-10-PCS; 2018-05-24)
DX: A40.1 Sepsis due to streptococcus, group B (principal); J18.9 Pneumonia, unspecified organism; G92 Toxic encephalopathy; J96.01 Acute respiratory failure with hypoxia; R65.21 Severe sepsis with septic shock; E46 Unspecified protein-calorie malnutrition; E72.20 Disorder of urea cycle metabolism, unspecified; J44.0 Chronic obstructive pulmonary disease with (acute) lower respiratory infection; N39.0 Urinary tract infection, site not specified; K59.39 Other megacolon; D64.9 Anemia, unspecified; B96.20 Unspecified Escherichia coli [E. coli] as the cause of diseases classified elsewhere; K56.41 Fecal impaction; M19.90 Unspecified osteoarthritis, unspecified site; L57.0 Actinic keratosis; R74.0 Nonspecific elevation of levels of transaminase and lactic acid dehydrogenase [LDH]; E11.65 Type 2 diabetes mellitus with hyperglycemia; Z16.12 Extended spectrum beta lactamase (ESBL) resistance; L90.9 Atrophic disorder of skin, unspecified; M24.571 Contracture, right ankle; M24.572 Contracture, left ankle; F03.90 Unspecified dementia, unspecified severity, without behavioral disturbance, psychotic disturbance, mood disturbance, and anxiety; I11.0 Hypertensive heart disease with heart failure; I25.10 Atherosclerotic heart disease of native coronary artery without angina pectoris; I50.9 Heart failure, unspecified; K21.9 Gastro-esophageal reflux disease without esophagitis; K80.20 Calculus of gallbladder without cholecystitis without obstruction; L89.320 Pressure ulcer of left buttock, unstageable; M21.371 Foot drop, right foot; M21.372 Foot drop, left foot; Q90.9 Down syndrome, unspecified; Z93.1 Gastrostomy status; Z79.899 Other long term (current) drug therapy; Z68.30 Body mass index [BMI] 30.0-30.9, adult
CPT/HCPCS: 36415; 36569; 36600; 70551; 71045; 74018; 74176; 76700; 76937; 77001; 78227; 80048; 80061; 80076; 80202; 80305; 82140; 82248; 82270; 82375; 82533; 82607; 82746; 82805; 82962; 83036; 83540; 83550; 83605; 83735; 84100; 84134; 84439; 84443; 84481; 84484; 85651; 86140; 87077; 87186; 87804; 93005; 93306; 93970; 94640; 96361; 96365; 96366; 96367; 99291; A6261; A9537; C1725; C1893; C9113; G0482; J0696; J1170; J1642; J1650; J1953; J2060; J2185; J2270; J2405; J2543; J3370; J3480; J3490; J7030; J7040; J7050; J7060; J7620; A4315

== ENCOUNTER 2018-07-18 18:07 | Inpatient (IN) | payer MEDICARE, MEDICAID ==
[~2018-07-18] VITALS: Ht 162.6 cm; Wt 73.5 kg
[2018-07-18] MEDS ORDERED: FAMOTIDINE 20MG/2ML VIAL IV ONE (19:00)
[2018-07-18] MEDS ORDERED: ALPRAZOLAM 0.5 MG TABLET PO ONE (19:00)
[2018-07-18] MEDS ORDERED: PREDNISONE 20MG TABLET PO ONE (19:00)
[2018-07-18] MEDS ORDERED: SODIUM CHLORIDE 0.9% 1,000 ML IV ONE ×2 (19:14→19:30)
[2018-07-18] MEDS ORDERED: PIPERACILLIN/TAZ 3.375G PREMIX 50 ML IV ONE (19:15)
[2018-07-18 19:24] LABS: BASOPHILS % 0.7 % (0.0-2.0); HEMOGLOBIN. 13.6 g/dL (12.0-16.0); LYMPHOCYTES % 11.3 % (20.0-50.0); MEAN CORPUSCULAR HEMOGLOBIN 30.1 pg (28.0-32.0); MEAN CORPUSCULAR VOLUME 90.7 fL (81.0-99.0); MONOCYTES % 6.7 % (2.0-8.0); NEUTROPHILS % 81.3 % (40.0-76.0); PLATELET 267 x1000/uL (130-400); RED BLOOD CELL COUNT 4.52 mill/uL (4.2-5.4); RED CELL DISTRIBUTION WIDTH 17.6 % (11.6-14.6)
[2018-07-18 19:29] LABS: CHLORIDE 112 mEq/L (98-107)
[2018-07-18 22:07] LABS: CLARITY URINE CLOUDY (CLEAR); COLOR URINE YELLOW (YELLOW); KETONES URINE NEGATIVE (NEGATIVE); LEUKOCYTE ESTERASE URINE 3+ (NEGATIVE); NITRITE URINE NEGATIVE (NEGATIVE); OCCULT BLOOD URINE 2+ (NEGATIVE); PH URINE >=9.0 (4.5-8.0); PROTEIN URINE 3+ (NEGATIVE); SPECIFIC GRAVITY URINE 1.021 (1.005-1.030)
[2018-07-19] MEDS ORDERED: ACETAMINOPHEN 325MG TABLET PO ONE (08:15)
[2018-07-19] MEDS ORDERED: ACETAMINOPHEN 650MG SUPP PR ONE (08:30)
[2018-07-19 09:30] VITALS: BP 127/85
[2018-07-19] MEDS ORDERED: DOCU250C69 GT (11:26)
[2018-07-19] MEDS ORDERED: ASCO-339 GT (11:26)
[2018-07-19] MEDS ORDERED: MELA5TAB3 GT (11:26)
[2018-07-19] MEDS ORDERED: POLY17PO28 GT (11:26)
[2018-07-19] MEDS ORDERED: BUSP10TA3 GT (11:26)
[2018-07-19] MEDS ORDERED: MULT-379 GT (11:26)
[2018-07-19] MEDS ORDERED: CLON0.2T GT (11:26)
[2018-07-19] MEDS ORDERED: HYDR-4001 GT (11:26)
[2018-07-19] MEDS ORDERED: LORA1TAB PO (11:26)
[2018-07-19] MEDS ORDERED: CRAN3875 GT (11:26)
[2018-07-19] MEDS ORDERED: FAMO40TA7 GT (11:26)
[2018-07-19] MEDS ORDERED: MOM MT (11:26)
[2018-07-19] MEDS ORDERED: MOM GT (11:26)
[2018-07-19] MEDS ORDERED: ZINC220T GT (11:26)
[2018-07-19] MEDS ORDERED: ACET-2853 GT ×2 (11:26)
[2018-07-19] MEDS ORDERED: QUET100T33 GT (11:26)
[2018-07-19] MEDS ORDERED: DEXT 5%/0.45% NACL 1000ML 1,000 ML IV SCH ×2 (11:32→12:00)
[2018-07-19] MEDS ORDERED: DIPHENHYDRAMINE 50MG/ML VIAL IV PRN (11:45)
[2018-07-19] MEDS ORDERED: LORAZEPAM 2MG/ML CPJ IV PRN (11:45)
[2018-07-19] MEDS ORDERED: GUAIFENESIN 200MG/10ML SUGAR FREE UDC PO PRN (11:45)
[2018-07-19] MEDS ORDERED: HYDROCODONE/ACETAMINOPHEN 5/325MG TABLET PO PRN (11:45)
[2018-07-19] MEDS ORDERED: ACETAMINOPHEN 650MG SUPP PR PRN (11:45)
[2018-07-19] MEDS ORDERED: CLONIDINE 0.1MG TABLET PO PRN (11:45)
[2018-07-19] MEDS ORDERED: MAGNESIUM/ALUMINUM HYDROXIDE/SIMETHICONE 30ML UDC PO PRN (11:45)
[2018-07-19 12:00] VITALS: BP 133/83
[2018-07-19] MEDS ORDERED: NA PHOS,M-B/NA PHOS,DI-BA ENEMA 118ML PR NR (12:00)
[2018-07-19] MEDS ORDERED: SORBITOL 70% SOLN 30ML PO NR (12:00)
[2018-07-19] MEDS ORDERED: LEVOFLOXACIN 500MG PREMIX 100 ML IV SCH (14:00)
[2018-07-19] MEDS: FAMOTIDINE 20MG/2ML VIAL IV SCH (14:38)
[2018-07-19] MEDS: POLYETHYLENE GLYCOL 3350 (17GM) 1 DOSE PACK PO SCH (14:38)
[2018-07-19] MEDS: ENOXAPARIN 40MG/0.4ML SYR SUBCUT SCH (14:52)
[2018-07-19 16:00] VITALS: BP 137/83
[2018-07-19] MEDS: LEVOFLOXACIN 500MG PREMIX 100 ML IV SCH (16:00)
[2018-07-19] MEDS: ACETAMINOPHEN 650MG/20.3ML UDC GT PRN (16:33)
[2018-07-19 20:00] VITALS: BP 136/88
[2018-07-19] MEDS: QUETIAPINE FUMARATE 100MG TABLET GT SCH (22:24)
[2018-07-19] MEDS: BUSPIRONE HCL 10MG TABLET PO SCH (22:24)
[2018-07-20] VITALS (7 sets, daily range): BP systolic 100–135; BP diastolic 52–74
[2018-07-20] MEDS: IPRATROPIUM/ALBUTEROL 0.5-3(2.5)MG/3ML NEB HHN SCH ×6 (00:13→21:32)
[2018-07-20] MEDS: ACETAMINOPHEN 650MG/20.3ML UDC GT PRN (05:10)
[2018-07-20 06:44] LABS: PHOSPHORUS 3.5 mg/dL (2.5-4.9)
[2018-07-20 06:45] LABS: BASOPHILS % 0.2 % (0.0-2.0); HEMATOCRIT. 34.7 % (36.0-48.0); HEMOGLOBIN. 11.2 g/dL (12.0-16.0); LYMPHOCYTES % 15.8 % (20.0-50.0); MEAN CORPUSCULAR HEMOGLOBIN 29.7 pg (28.0-32.0); MEAN CORPUSCULAR VOLUME 91.8 fL (81.0-99.0); MEAN PLATELET VOLUME 8.7 fl (7.4-10.4); MONOCYTES % 10.5 % (2.0-8.0); NEUTROPHILS % 73.5 % (40.0-76.0); PLATELET 171 x1000/uL (130-400); RED BLOOD CELL COUNT 3.78 mill/uL (4.2-5.4)
[2018-07-20] MEDS ORDERED: DEXTROSE 50% WATER 50ML SYRINGE IV PRN ×3 (08:45)
[2018-07-20] MEDS ORDERED: SORBITOL 70% SOLN 30ML GT NR (09:00)
[2018-07-20] MEDS ORDERED: NA PHOS,M-B/NA PHOS,DI-BA ENEMA 118ML PR NR (09:00)
[2018-07-20] MEDS: POLYETHYLENE GLYCOL 3350 (17GM) 1 DOSE PACK PO SCH (09:53)
[2018-07-20] MEDS: BUSPIRONE HCL 10MG TABLET PO SCH ×2 (09:53→22:27)
[2018-07-20] MEDS ORDERED: SODIUM CHL 0.45% + KCL 20MEQ/L 1,000 ML IV SCH (10:00)
[2018-07-20] MEDS: ENOXAPARIN 40MG/0.4ML SYR SUBCUT SCH (11:58)
[2018-07-20] MEDS: POTASSIUM CHLORIDE INJ 40 MEQ in DEXTROSE 5% WATER 1,000 ML IV SCH ×2 (11:58→21:12)
[2018-07-20] MEDS: FAMOTIDINE 20MG/2ML VIAL IV SCH (11:59)
[2018-07-20] MEDS ORDERED: IOHEXOL-300 100 ML BOTTLE ONE (12:09)
[2018-07-20] MEDS ORDERED: BLOOD SUGAR DIAGNOSTIC STRIP TEST SCH (12:20)
[2018-07-20] MEDS ORDERED: INSULIN LISPRO 100 UNITS/ML SUBCUT SCH (12:50)
[2018-07-20] MEDS: BLOOD SUGAR DIAGNOSTIC STRIP TEST SCH ×3 (13:18→22:35)
[2018-07-20] MEDS: INSULIN LISPRO 100 UNITS/ML SUBCUT SCH ×3 (13:21→22:38)
[2018-07-20] MEDS: LEVOFLOXACIN 500MG PREMIX 100 ML IV SCH (15:22)
[2018-07-20] MEDS ORDERED: POTASSIUM CHLORIDE 20MEQ/PACKET PO NR (21:00)
[2018-07-20] MEDS ORDERED: POTASSIUM CHLORIDE INJ 40 MEQ in DEXT 5% WATER 250 ML IV SCH (21:30)
[2018-07-20] MEDS: QUETIAPINE FUMARATE 100MG TABLET GT SCH (22:27)
[2018-07-21] VITALS: BP 102/64
[2018-07-21] MEDS: IPRATROPIUM/ALBUTEROL 0.5-3(2.5)MG/3ML NEB HHN SCH ×4 (00:19→15:30)
[2018-07-21 04:00] VITALS: BP 104/63
[2018-07-21] MEDS: BLOOD SUGAR DIAGNOSTIC STRIP TEST SCH ×4 (06:49→21:00)
[2018-07-21] MEDS: INSULIN LISPRO 100 UNITS/ML SUBCUT SCH ×4 (06:51→21:00)
[2018-07-21] MEDS: POTASSIUM CHLORIDE INJ 40 MEQ in DEXTROSE 5% WATER 1,000 ML IV SCH (07:24)
[2018-07-21 08:00] VITALS: BP 115/67
[2018-07-21 08:33] LABS: BASOPHILS % 0.1 % (0.0-2.0); EOSINOPHILS % 0.5 % (0.0-5.0); HEMATOCRIT. 31.7 % (36.0-48.0); HEMOGLOBIN. 10.5 g/dL (12.0-16.0); MEAN CORPUSCULAR HEMOGLOBIN 30.4 pg (28.0-32.0); MEAN CORPUSCULAR VOLUME 91.7 fL (81.0-99.0); MEAN PLATELET VOLUME 8.6 fl (7.4-10.4); MONOCYTES % 4.8 % (2.0-8.0); NEUTROPHILS % 72.6 % (40.0-76.0); PLATELET 124 x1000/uL (130-400); RED BLOOD CELL COUNT 3.46 mill/uL (4.2-5.4); RED CELL DISTRIBUTION WIDTH 16.1 % (11.6-14.6)
[2018-07-21 08:35] LABS: CHLORIDE 120 mEq/L (98-107)
[2018-07-21 08:42] LABS: PHOSPHORUS 1.1 mg/dL (2.5-4.9)
[2018-07-21] MEDS: FAMOTIDINE 20MG/2ML VIAL IV SCH (10:18)
[2018-07-21] MEDS: BUSPIRONE HCL 10MG TABLET PO SCH ×2 (10:18→22:27)
[2018-07-21] MEDS: POLYETHYLENE GLYCOL 3350 (17GM) 1 DOSE PACK PO SCH (10:19)
[2018-07-21] MEDS: POTASSIUM CHLORIDE 20MEQ/PACKET PO SCH ×2 (10:19→16:48)
[2018-07-21 12:00] VITALS: BP 113/54
[2018-07-21] MEDS: ENOXAPARIN 40MG/0.4ML SYR SUBCUT SCH (12:52)
[2018-07-21 16:00] VITALS: BP 124/72
[2018-07-21] MEDS: LEVOFLOXACIN 500MG PREMIX 100 ML IV SCH (16:46)
[2018-07-21] MEDS: DEXT 5% WATER + KCL 20MEQ/L 1,000 ML IV SCH (16:46)
[2018-07-21] MEDS: QUETIAPINE FUMARATE 100MG TABLET GT SCH (22:27)
[2018-07-22] VITALS (7 sets, daily range): BP systolic 93–129; BP diastolic 50–75
[2018-07-22] MEDS: IPRATROPIUM/ALBUTEROL 0.5-3(2.5)MG/3ML NEB HHN SCH ×6 (01:41→20:30)
[2018-07-22 06:44] LABS: BASOPHILS % 0.4 % (0.0-2.0); EOSINOPHILS % 1.2 % (0.0-5.0); HEMATOCRIT. 31.9 % (36.0-48.0); HEMOGLOBIN. 10.3 g/dL (12.0-16.0); LYMPHOCYTES % 29.9 % (20.0-50.0); MEAN CORPUSCULAR HEMOGLOBIN 29.9 pg (28.0-32.0); MEAN CORPUSCULAR VOLUME 92.1 fL (81.0-99.0); MEAN PLATELET VOLUME 8.9 fl (7.4-10.4); MONOCYTES % 5.3 % (2.0-8.0); NEUTROPHILS % 63.2 % (40.0-76.0); PLATELET 112 x1000/uL (130-400); RED BLOOD CELL COUNT 3.46 mill/uL (4.2-5.4); RED CELL DISTRIBUTION WIDTH 16.2 % (11.6-14.6)
[2018-07-22 06:58] LABS: CHLORIDE 117 mEq/L (98-107)
[2018-07-22] MEDS: BLOOD SUGAR DIAGNOSTIC STRIP TEST SCH ×4 (06:58→21:51)
[2018-07-22] MEDS: DEXT 5% WATER + KCL 20MEQ/L 1,000 ML IV SCH (07:00)
[2018-07-22 07:05] LABS: PHOSPHORUS 1.3 mg/dL (2.5-4.9)
[2018-07-22] MEDS: INSULIN LISPRO 100 UNITS/ML SUBCUT SCH ×4 (08:10→21:00)
[2018-07-22] MEDS ORDERED: POTASSIUM-SODIUM PHOSPHATE POWDER PACKET GT SCH (09:00)
[2018-07-22] MEDS: BUSPIRONE HCL 10MG TABLET PO SCH ×2 (09:29→21:26)
[2018-07-22] MEDS: FAMOTIDINE 20MG/2ML VIAL IV SCH (09:29)
[2018-07-22] MEDS: POLYETHYLENE GLYCOL 3350 (17GM) 1 DOSE PACK PO SCH (09:30)
[2018-07-22] MEDS: ENOXAPARIN 40MG/0.4ML SYR SUBCUT SCH (09:30)
[2018-07-22] MEDS: DEXTROSE 5% WATER 1,000 ML IV SCH (11:00)
[2018-07-22] MEDS: PIPERACILLIN/TAZ 2.25G PREMIX 50 ML IV SCH ×2 (12:00→17:29)
[2018-07-22] MEDS ORDERED: POTASSIUM PHOS,M-BASIC-D-BASIC 15 MMOL in DEXT 5% WATER 245 ML IV NR (12:30)
[2018-07-22] MEDS: LACTOBACILLUS GG CAPSULE GT SCH (13:27)
[2018-07-22] MEDS ORDERED: QUETIAPINE FUMARATE 50MG TABLET GT SCH (21:00)
[2018-07-23] VITALS: BP 115/75
[2018-07-23] MEDS: IPRATROPIUM/ALBUTEROL 0.5-3(2.5)MG/3ML NEB HHN SCH ×4 (00:15→12:15)
[2018-07-23] MEDS: PIPERACILLIN/TAZ 2.25G PREMIX 50 ML IV SCH ×3 (00:50→14:41)
[2018-07-23 04:00] VITALS: BP 108/70
[2018-07-23] MEDS: DEXTROSE 5% WATER 1,000 ML IV SCH (05:12)
[2018-07-23] MEDS: BLOOD SUGAR DIAGNOSTIC STRIP TEST SCH ×3 (05:38→18:11)
[2018-07-23 07:00] LABS: BASOPHILS % 0.4 % (0.0-2.0); EOSINOPHILS % 1.6 % (0.0-5.0); HEMATOCRIT. 29.5 % (36.0-48.0); LYMPHOCYTES % 24.8 % (20.0-50.0); MEAN CORPUSCULAR HEMOGLOBIN 30.4 pg (28.0-32.0); MEAN CORPUSCULAR VOLUME 89.9 fL (81.0-99.0); MEAN PLATELET VOLUME 8.6 fl (7.4-10.4); MONOCYTES % 4.1 % (2.0-8.0); NEUTROPHILS % 69.1 % (40.0-76.0); PLATELET 132 x1000/uL (130-400); RED BLOOD CELL COUNT 3.28 mill/uL (4.2-5.4); RED CELL DISTRIBUTION WIDTH 16.3 % (11.6-14.6)
[2018-07-23 08:00] VITALS: BP 129/80
[2018-07-23] MEDS: INSULIN LISPRO 100 UNITS/ML SUBCUT SCH ×3 (08:10→18:10)
[2018-07-23 08:12] LABS: CHLORIDE 112 mEq/L (98-107)
[2018-07-23] MEDS ORDERED: NA PHOS,M-B/NA PHOS,DI-BA ENEMA 118ML PR NR (08:15)
[2018-07-23 08:20] LABS: PHOSPHORUS 3.8 mg/dL (2.5-4.9)
[2018-07-23] MEDS ORDERED: METOCLOPRAMIDE HCL 5MG TABLET GT SCH (10:00)
[2018-07-23] MEDS: FAMOTIDINE 20MG/2ML VIAL IV SCH (10:31)
[2018-07-23] MEDS: BUSPIRONE HCL 10MG TABLET PO SCH (10:32)
[2018-07-23] MEDS: POLYETHYLENE GLYCOL 3350 (17GM) 1 DOSE PACK PO SCH (10:32)
[2018-07-23] MEDS: LACTOBACILLUS GG CAPSULE GT SCH (10:32)
[2018-07-23 12:00] VITALS: BP 118/74
[2018-07-23] MEDS ORDERED: METRONIDAZOLE 500MG TABLET GT SCH (14:00)
[2018-07-23] MEDS: ENOXAPARIN 40MG/0.4ML SYR SUBCUT SCH (14:42)
[2018-07-23] MEDS ORDERED: CEFTRIAXONE 1,000 MG in DEXTROSE 5% WATER 50 ML IV SCH (18:00)
[2018-07-23 18:13] VITALS: BP 111/67
== END 2018-07-23 18:57 | DRG 871 ==
LOC: ER 18:07 → EDBEDREQ 23:44 → EDBEDREQSVC 23:44 → EDBEDREQTM 23:44 → ENRESERV 07-19 08:09 → 6WST 07-19 08:26 → 5WST 07-20 20:26 → 7WST 07-21 21:00
PROVIDERS: ADMIT Internal Medicine Geriatric Medicine; ATTEND Internal Medicine Geriatric Medicine
PROC: 02HV33Z Insertion of Infusion Device into Superior Vena Cava, Percutaneous Approach (ICD-10-PCS; principal; 2018-07-20)
PROC: B5181ZA Fluoroscopy of Superior Vena Cava using Low Osmolar Contrast, Guidance (ICD-10-PCS; 2018-07-20)
PROC: B548ZZA Ultrasonography of Superior Vena Cava, Guidance (ICD-10-PCS; 2018-07-20)
DX: A41.9 Sepsis, unspecified organism (principal); G92 Toxic encephalopathy; N39.0 Urinary tract infection, site not specified; E87.0 Hyperosmolality and hypernatremia; N17.9 Acute kidney failure, unspecified; I50.9 Heart failure, unspecified; J44.9 Chronic obstructive pulmonary disease, unspecified; I11.0 Hypertensive heart disease with heart failure; Z66 Do not resuscitate; Z93.1 Gastrostomy status; F03.90 Unspecified dementia, unspecified severity, without behavioral disturbance, psychotic disturbance, mood disturbance, and anxiety; E86.9 Volume depletion, unspecified; D64.9 Anemia, unspecified; E83.39 Other disorders of phosphorus metabolism; E86.0 Dehydration; E87.6 Hypokalemia; K56.41 Fecal impaction; K52.9 Noninfective gastroenteritis and colitis, unspecified; I25.10 Atherosclerotic heart disease of native coronary artery without angina pectoris; K21.9 Gastro-esophageal reflux disease without esophagitis; M19.90 Unspecified osteoarthritis, unspecified site; K59.8 Other specified functional intestinal disorders; F41.9 Anxiety disorder, unspecified; Z86.73 Personal history of transient ischemic attack (TIA), and cerebral infarction without residual deficits
CPT/HCPCS: 36415; 36569; 71045; 74018; 74176; 74177; 76937; 77001; 80048; 82962; 83036; 83605; 83735; 83880; 84100; 84132; 84145; 84484; 84550; 87077; 87186; 93005; 93970; 94640; 96365; 96375; 99291; A6261; C1725; J0696; J1650; J1815; J1956; J2543; J3480; J3490; J7030; J7060; J7070; J7620; J8597; Q9967

== ENCOUNTER 2018-08-19 22:56 | Inpatient (IN) | payer MEDICARE, MEDICAID ==
[~2018-08-19] VITALS: Ht 158.8 cm; Wt 73.9 kg
[~2018-08-19 22:56] MED LIST changes: +ACET-2853 GT; +ASCO-339 GT; +BUSP10TA3 GT; +CLON0.2T GT; +CRAN3875 GT; -DOCU-150 PO; +DOCU250C69 GT; +FAMO40TA7 GT; -FURO40TA5 PO; +HYDR-4001 GT; +MELA5TAB3 GT; +MOM GT; +MOM MT; +MULT-379 GT; -OXCA300T31 PO; +POLY17PO28 GT; +QUET100T33 GT; -TEMA30CA5 PO; -TRAZ300T2 PO; +ZINC220T GT
[2018-08-19] MEDS ORDERED: ETOMIDATE 2MG/ML 10ML VIAL IV ONE (23:06)
[2018-08-19] MEDS ORDERED: VECURONIUM BROMIDE 10 MG/VIAL IV ONE ×2 (23:06→23:30)
[2018-08-19] MEDS ORDERED: MORPHINE SULFATE 4 MG/ML CPJ (NOT FOR IM USE) IV STA (23:11)
[2018-08-19] MEDS ORDERED: ONDANSETRON HCL 4MG/2ML INJ IV STA (23:11)
[2018-08-19] MEDS ORDERED: PIPERACILLIN/TAZ 3.375G PREMIX 50 ML IV ONE (23:15)
[2018-08-19] MEDS ORDERED: SODIUM CHLORIDE 0.9% 1000ML BAG (SEPSIS BOLUS) IV ONE (23:15)
[2018-08-19] MEDS ORDERED: VANCOMYCIN 1 G PREMIX 200 ML IV ONE (23:15)
[2018-08-19] MEDS ORDERED: LEVOFLOXACIN 750MG PREMIX 150 ML IV ONE (23:15)
[2018-08-19] MEDS ORDERED: PROPOFOL 10MG/ML 100ML 100 ML IV ONE (23:30)
[2018-08-20] VITALS (36 sets, daily range): BP systolic 49–138; BP diastolic 17–73
[2018-08-20 00:42] LABS: BASOPHILS % 0.9 % (0.0-2.0); EOSINOPHILS % 0.1 % (0.0-5.0); HEMATOCRIT. 40.2 % (36.0-48.0); LYMPHOCYTES % 28.7 % (20.0-50.0); MEAN CORPUSCULAR HEMOGLOBIN 30.7 pg (28.0-32.0); MEAN CORPUSCULAR VOLUME 102.5 fL (81.0-99.0); MEAN PLATELET VOLUME 9.3 fl (7.4-10.4); MONOCYTES % 2.4 % (2.0-8.0); NEUTROPHILS % 67.9 % (40.0-76.0); PLATELET 151 x1000/uL (130-400); RED BLOOD CELL COUNT 3.92 mill/uL (4.2-5.4); RED CELL DISTRIBUTION WIDTH 18.3 % (11.6-14.6)
[2018-08-20 00:48] LABS: CHLORIDE 116 mEq/L (98-107)
[2018-08-20] MEDS ORDERED: SODIUM CHLORIDE 0.9% 1,000 ML IV ONE (00:56)
[2018-08-20] MEDS ORDERED: NOREPINEPHRINE 4 MG in DEXT 5% WATER 250 ML IV STA ×2 (00:56→04:07)
[2018-08-20 01:01] LABS: INR 1.3; PARTIAL THROMBOPLASTIN TIME 35.1 sec (23.4-31.0); PROTHROMBIN TIME 12.7 sec (9.6-11.0)
[2018-08-20] MEDS ORDERED: NOREPINEPHRINE 4MG/250ML PMX 250 ML IV ONE ×2 (01:09→04:13)
[2018-08-20 02:03] LABS: BG BASE EXCESS -13.3 mmol/L (-2.0-2.0); BG CARBOXYHEMOGLOBIN 0.3 % (0.5-1.5); BG DEOXYHEMOGLOBIN 0.7 % (0.0-5.0); BG FRACTION INSPIRED OXYGEN 100; BG HCO3 ACT 10.9 mmol/L (22.0-26.0); BG METHEMOGLOBIN 0.4 % (0.0-1.5); BG OXYGEN SATURATION 99.3 % (92.0-98.5); BG OXYHEMOGLOBIN 98.6 % (94.0-97.0); BG PCO2 22.2 mmHg (35.0-45.0); BG PEEP (cmH2O) 0 cmH2O; BG SAMPLE SITE LEFT BRACHIAL; BG TIDAL VOLUME(mL) 550 mL; BG TOTAL HEMOGLOBIN 13.2 g/dL (12.0-18.0); BG VENT MODE VENT - A/C; BG VENT RATE 16 set
[2018-08-20 02:15] LABS: CLARITY URINE TURBID (CLEAR); COLOR URINE DARK YELLOW (YELLOW); KETONES URINE TRACE (NEGATIVE); LEUKOCYTE ESTERASE URINE 3+ (NEGATIVE); NITRITE URINE NEGATIVE (NEGATIVE); OCCULT BLOOD URINE 3+ (NEGATIVE); PH URINE 8.5 (4.5-8.0); PROTEIN URINE 3+ (NEGATIVE); SPECIFIC GRAVITY URINE 1.023 (1.005-1.030)
[2018-08-20] MEDS ORDERED: MAGNESIUM/ALUMINUM HYDROXIDE/SIMETHICONE 30ML UDC PO PRN (05:15)
[2018-08-20] MEDS ORDERED: CLONIDINE 0.1MG TABLET PO PRN (05:15)
[2018-08-20] MEDS ORDERED: ACETAMINOPHEN 650MG SUPP PR PRN (05:15)
[2018-08-20] MEDS ORDERED: NOREPINEPHRINE 32 MG in DEXT 5% WATER 468 ML IV PRN (06:00)
[2018-08-20] MEDS ORDERED: PHENYLEPHRINE 80 MG in DEXT 5% WATER 492 ML IV PRN ×2 (06:00)
[2018-08-20] MEDS ORDERED: DOPAMINE 800MG PREMIX (DOUBLE) 250 ML IV PRN (07:45)
[2018-08-20 08:07] LABS: BG BASE EXCESS -17.1 mmol/L (-2.0-2.0); BG CARBOXYHEMOGLOBIN 0.3 % (0.5-1.5); BG DEOXYHEMOGLOBIN 4.7 % (0.0-5.0); BG FRACTION INSPIRED OXYGEN 70; BG HCO3 ACT 8.6 mmol/L (22.0-26.0); BG METHEMOGLOBIN 0.1 % (0.0-1.5); BG OXYGEN SATURATION 95.3 % (92.0-98.5); BG OXYHEMOGLOBIN 94.9 % (94.0-97.0); BG PCO2 21.6 mmHg (35.0-45.0); BG PH 7.217 (7.350-7.450); BG PO2 92.6 mmHg (75.0-100.0); BG SAMPLE SITE RIGHT BRACHIAL; BG TIDAL VOLUME(mL) 550 mL; BG VENT MODE VENT - A/C; BG VENT RATE 16 set
[2018-08-20] MEDS ORDERED: SODIUM BICARBONATE 8.4% 1 MEQ/ML 50ML SYR IV NR (08:15)
[2018-08-20] MEDS ORDERED: PANTOPRAZOLE SODIUM 40 MG/VIAL IV SCH (09:00)
[2018-08-20] MEDS ORDERED: MORPHINE SULFATE 250 MG in DEXT 5% WATER 240 ML IV PRN (10:00)
[2018-08-20] MEDS ORDERED: MIDAZOLAM HCL 5 MG/5 ML VIAL IV ONE (12:15)
[2018-08-20 14:19] LABS: *AMPHETAMINES SCREEN URINE NEGATIVE (NEGATIVE); CANNABINOID URINE SCREEN NEGATIVE (NEGATIVE); PHENCYCLIDINE URINE SCREEN NEGATIVE (NEGATIVE)
[2018-08-20 14:20] LABS: *BARBITURATES SCREEN URINE NEGATIVE (NEGATIVE); *BENZODIAZEPINES SCREEN URINE NEGATIVE (NEGATIVE); *COCAINE SCREEN URINE NEGATIVE (NEGATIVE); METHADONE URINE SCREEN NEGATIVE (NEGATIVE); OPIATES URINE SCREEN NEGATIVE (NEGATIVE)
== END 2018-08-20 13:03 | disposition expired | DRG 871 ==
LOC: ER 22:56 → EDBEDREQSVC 08-20 00:03 → EDBEDREQ 08-20 00:03 → EDBEDREQTM 08-20 00:03 → CVICU 08-20 02:54 → EDBEDREQDT 08-20 02:59 → EDBEDREQ 08-20 02:59 → EDBEDREQTM 08-20 02:59 → ENRESERV 08-20 03:17
PROVIDERS: ADMIT Family Medicine Adult Medicine; ATTEND Family Medicine Adult Medicine
PROC: 0BH17EZ Insertion of Endotracheal Airway into Trachea, Via Natural or Artificial Opening (ICD-10-PCS; principal; 2018-08-19)
PROC: 5A1935Z Respiratory Ventilation, Less than 24 Consecutive Hours (ICD-10-PCS; 2018-08-19)
DX: A41.9 Sepsis, unspecified organism (principal); R65.21 Severe sepsis with septic shock; J96.00 Acute respiratory failure, unspecified whether with hypoxia or hypercapnia; J18.9 Pneumonia, unspecified organism; K72.00 Acute and subacute hepatic failure without coma; N39.0 Urinary tract infection, site not specified; J44.0 Chronic obstructive pulmonary disease with (acute) lower respiratory infection; E87.0 Hyperosmolality and hypernatremia; E87.2 Acidosis; K21.9 Gastro-esophageal reflux disease without esophagitis; M19.90 Unspecified osteoarthritis, unspecified site; F03.90 Unspecified dementia, unspecified severity, without behavioral disturbance, psychotic disturbance, mood disturbance, and anxiety; R73.9 Hyperglycemia, unspecified; F41.9 Anxiety disorder, unspecified; I25.10 Atherosclerotic heart disease of native coronary artery without angina pectoris; G80.9 Cerebral palsy, unspecified; I50.9 Heart failure, unspecified; I11.0 Hypertensive heart disease with heart failure; K76.0 Fatty (change of) liver, not elsewhere classified; K80.20 Calculus of gallbladder without cholecystitis without obstruction; Z51.5 Encounter for palliative care; Z66 Do not resuscitate
CPT/HCPCS: 31500; 36415; 36600; 71045; 74176; 80305; 82140; 82375; 82805; 83605; 83880; 84145; 84478; 84484; 87070; 93005; 93306; 93970; 94640; 96365; 96366; 96368; 96375; 99291; C9113; J1265; J1956; J2270; J2405; J2543; J2704; J3370; J3490; J7030; J7040; J7060